=== PATIENT | female | born 1975 | race Asian ===

== ENCOUNTER 2019-03-24 11:53 | Emergency (ER) | payer OTHER ==
[~2019-03-24] VITALS: Ht 162.6 cm; Wt 95.3 kg
[2019-03-24 12:39] LABS: PLATELET COUNT 367 K/uL (152-353)
[2019-03-24 12:49] LABS: POTASSIUM 3.9 mmol/L (3.6-5.2)
[2019-03-24 14:00] VITALS: BP 122/86; TEMP 98
== END 2019-03-24 14:33 | disposition home or self-care (01) ==
LOC: ED 11:53
PROVIDERS: Family Medicine
DX: K85.90 Acute pancreatitis without necrosis or infection, unspecified (principal); R10.11 Right upper quadrant pain
CPT/HCPCS: 80053; 81000; 82150; 83690; 85027; 99283